=== PATIENT | male | born 1960 | race Caucasian/White ===

== ENCOUNTER 2017-09-12 14:14 | Emergency (ER) | payer SELFPAY ==
[2017-09-12] MEDS ORDERED: Ketorolac 60 MG/2 ML SDV IM ONE (14:21)
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
--- NOTE | 2017-09-13 09:10 | CR ---
EXAM DATE: 09/12/17 PATIENT'S AGE: 57 Patient: HAIM BAIG Facility: [place], [place] Site . Site : 1960 Study: XRay Knee Right [id number]/24/2018 3:50:56 PM Ordering Physician: Slime Grover Final Report: Indication: Knee pain Technique: Right knee 3 views Comparison: None Findings: Bones: Alignment is normal. No fractures or bone lesions. Minimal spurring is present in the anterior and superior surfaces of the patella. Joint spaces: Joint spaces are well maintained. No degenerative changes. No sign of joint effusion. Soft tissues: Unremarkable. Impression: No findings to explain pain. Dictated by Eliot Anna MD @ Sep 12 2017 4:23PM (Electronic Signature) Report Signed by Proxy. LUCY
--- NOTE | 2017-09-13 09:11 | CR ---
EXAM DATE: 09/12/17 PATIENT'S AGE: 57 Patient: HAIM BAIG Facility: [place], [place] Site . Site : 1960 Study: XRay Spine Lumbar [id number]/24/2018 3:51:14 PM Ordering Physician: Slime Grover Final Report: INDICATION: Back pain TECHNIQUE: Lumbar spine 3 view COMPARISON: None FINDINGS: Bones: Alignment is normal. No fractures or significant bone lesions. Joints: Disc spaces and facets are unremarkable. Soft tissues: Unremarkable. IMPRESSION: Unremarkable lumbar spine. Dictated by Eliot Anna MD @ Sep 12 2017 4:25PM (Electronic Signature) Report Signed by Proxy. LUCY
--- NOTE | 2017-09-13 09:12 | CR ---
EXAM DATE: 09/12/17 PATIENT'S AGE: 57 Patient: HAIM BAIG Facility: [place], [place] Site . Site : 1960 Study: XRay Extremity Right ankle [id number]/24/2018 3:51:34 PM Ordering Physician: Slime Grover Final Report: Indication: Left ankle pain Technique: Left ankle 3 views Comparison: None Findings: Bones: Alignment is normal. No fractures or bone lesions. Joint spaces: Joint spaces are well maintained. No degenerative changes. Soft tissues: Unremarkable. Impression: No findings to explain pain. Dictated by Eliot Anna MD @ Sep 12 2017 4:26PM (Electronic Signature) Report Signed by Proxy. LUCY
== END 2017-09-12 16:59 | disposition home or self-care (01) ==
LOC: MW.ED 14:14
DX: S99.911A Unspecified injury of right ankle, initial encounter (principal); S89.91XA Unspecified injury of right lower leg, initial encounter; Z91.048 Other nonmedicinal substance allergy status; V29.9XXA Motorcycle rider (driver) (passenger) injured in unspecified traffic accident, initial encounter
CPT/HCPCS: 72100; 73562; 73610; 80305; 81001; 96372; 99284; J1885; 99283

== ENCOUNTER 2017-11-17 09:26 | Day surgery (SDC) | payer OTHER ==
[~2017-11-17 09:26] MED LIST: Lactated Ringers 1,000 ML IV SCH; Midazolam 1 MG/ML 2 ML SDV ONE; Propofol 200 MG/20 ML SDV ONE; fentaNYL 100 MCG/2 ML SDV ONE
--- NOTE | 2017-11-17 10:13 | PCM.PREANE ---
Preanesthetic Assessment - Procedure Proposed Procedure: EGD and Colonoscopy - Anesthesia/Transfusion/Family Hx Anesthesia History: Prior Anesthesia Without Reaction Transfusion History: No Prior Transfusion(s) - Review of Systems General: No Symptoms Pulmonary: No Symptoms Cardiovascular: No Symptoms Gastrointestinal: Other (GERD) Neurological: Other (low back pain) Other: Reports: None - Physical Assessment NPO Status Date: 11/16/17 NPO Status Time: 22:00 O2 Sat by Pulse Oximetry: 96 Respiratory Rate: 15 Vital Signs: Last Vital Signs Temp 98.2 F 11/17/17 10:09 Pulse 58 L 11/17/17 10:09 Resp 15 11/17/17 10:09 BP 112/66 11/17/17 10:09 Pulse Ox 96 11/17/17 10:09 Height: 5 ft 10 in Weight: 172 lb ASA Class: 2 Mental Status: Alert & Oriented x3 Airway Class: Mallampati = 2 Dentition: Reports: Normal Dentition (lower), Dentures Thyro-Mental Finger Breadths: 3 Mouth Opening Finger Breadths: 3 ROM/Head Extension: Full Lungs: Clear to Auscultation, Normal Respiratory Effort Cardiovascular: Regular Rate, Regular Rhythm, No Murmurs - Allergies Allergies/Adverse Reactions: Allergies Allergy/AdvReac Type Severity Reaction Status Date / Time cat dander Allergy Other Verified 11/14/17 09:40 hay Allergy Other Uncoded 09/12/17 14:28 - Blood Blood Available: No Product(s) Available: None - Anesthesia Plan Pre-Op Medication Ordered: None - Acknowledgements Anesthesia Type Planned: MAC Pt an Appropriate Candidate for the Planned Anesthesia: Yes Alternatives and Risks of Anesthesia Discussed w Pt/Guardian: Yes Pt/Guardian Understands and Agrees with Anesthesia Plan: Yes PreAnesthesia Questionnaire - Past Health History Medical/Surgical History: Denies Medical/Surgical History HEENT History: Reports: Other (See Below) Other HEENT History: top denture Gastrointestinal History: Reports: GERD, Other (See Below) Other Gastrointestinal History: dysphagia Musculoskeletal History: Reports: Fracture Other Musculoskeletal History: master wrist fx's Dermatologic History: Reports: Psoriasis - Past Surgical History Head Surgeries/Procedures: Reports: None Musculoskeletal Surgical History: Reports: Other (See Below) Other Musculoskeletal Surgeries/Procedures:: repair of left wrist fracture - SUBSTANCE USE Smoking Status *Q: Current Every Day Smoker Tobacco Use Within Last Twelve Months: Cigarettes Recreational Drug Use History: No - HOME MEDS Home Medications: Home Meds Omeprazole 40 mg PO DAILY 11/14/17 [History] Sucralfate 1 tab PO TID 11/14/17 [History] - CURRENT (IN HOUSE) MEDS Current Meds: Current Medications Lactated Ringer's (Ringers, Lactated) 1,000 mls @ 125 mls/hr IV ASDIRECTED ERICK Last Admin: 11/17/17 10:09 Dose: 125 mls/hr Discontinued Medications Fentanyl (Sublimaze) Confirm Administered Dose 100 mcg .ROUTE .STK-MED ONE Stop: 11/17/17 08:15 Midazolam HCl (Versed 1 Mg/Ml) Confirm Administered Dose 2 mg .ROUTE .STK-MED ONE Stop: 11/17/17 08:15 Propofol (Diprivan 20 Ml) Confirm Administered Dose 200 mg .ROUTE .STK-MED ONE Stop: 11/17/17 08:15
[2017-11-17] MEDS ORDERED: Glycopyrrolate 0.2 MG/ML SDV ONE (10:50)
[2017-11-17] MEDS ORDERED: Propofol 200 MG/20 ML SDV ONE (11:04)
--- NOTE | 2017-11-17 11:44 | PCM.POSTAN ---
POST ANESTHESIA ASSESSMENT - MENTAL STATUS Mental Status: Alert, Oriented - RESPIRATORY Respiratory Status: Respiratory Rate WNL, Airway Patent, O2 Saturation Stable - CARDIOVASCULAR CV Status: Pulse Rate WNL, Blood Pressure Stable - GASTROINTESTINAL GI Status: No Symptoms - POST OP HYDRATION Hydration Status: Adequate & Stable
--- NOTE | 2017-11-17 11:54 | PCM48HPAN ---
Post Anesthesia Note - EVALUATION WITHIN 48HRS OF ANESTHETIC Vital Signs in Normal Range: Yes Patient Participated in Evaluation: Yes Respiratory Function Stable: Yes Airway Patent: Yes Cardiovascular Function Stable: Yes Hydration Status Stable: Yes Pain Control Satisfactory: Yes Nausea and Vomiting Control Satisfactory: Yes Mental Status Recovered: Yes Resp Rate: 18
--- NOTE | 2017-11-17 12:09 | PCM.OPNOTE ---
- General Post-Op/Procedure Note Date of Surgery/Procedure: 11/17/17 Operative Procedure(s): egd w bx. colonoscopy Findings: see dict [id number] Pre Op Diagnosis: dysphagia and abd pain Post-Op Diagnosis: Same Anesthesia Technique: Moderate Sedation (jose) Primary Surgeon: Faustino Fischer Pathology: sent Complications: None Condition: Good Free Text/Narrative:: Intake & Output 11/16/17 11/17/17 11/17/17 22:59 06:59 14:59 Intake Total 900 Balance 900
--- NOTE | 2017-11-17 18:52 | OR ---
SURGEON: Faustino Fischer MD DATE OF PROCEDURE: 11/17/2017 PREOPERATIVE DIAGNOSES: 1. Dysphagia. 2. Abdominal pain. POSTOPERATIVE DIAGNOSES: Esophagogastroduodenoscopy diagnosis: Nondiagnostic food. Colonoscopy diagnosis: Hemorrhoids. PROCEDURES PERFORMED: Attempted esophagogastroduodenoscopy with biopsy and colonoscopy. PROCEDURE IN DETAIL: EGD: The patient was taken to the endoscopy room, and with the [facility], Diprivan was administered. A well-lubricated EGD scope was gently inserted through the oropharynx, down the esophagus, passing through the gastroesophageal junction, into the stomach. The mucosa was examined upon the passage. Any etiology will be noted. Once in the stomach, we continued to advance to the distal antrum, passed through the pylorus into the second portion of the duodenum. Again, the mucosa was examined for any abnormality and etiology. The scope was then retrieved back to the stomach and then retroflexed to look at the fundus of the stomach. If a biopsy was indicated, we will biopsy the antrum, body, and gastroesophageal junction. The air will be sucked out while the scope is retrieved to reduce the patient's discomfort. The patient tolerated the procedure well. There were no intraoperative complications. Dr. Fischer was present through the whole procedure. Prior to surgery, a time-out had been called, the patient identified, procedure identified and antibiotic administered. Colonoscopy procedure: The patient was taken to the endoscopy room. A time out was called, patient identified, and procedure identified. Diprivan was then administrated. Patient went from awake to sleep, hearing doctor talking or door closing is normal. Perineum inspection and digital examination were then performed. A well- lubricated colonoscope was gently inserted through the rectum, advanced past the rectosigmoid junction, the descending colon, splenic flexure, transverse colon, hepatic flexure, ascending colon, arrived to the cecum. Cecum was identified as dictated in the finding. Then the scope was carefully withdrawn while attention was paid to the mucosal surface for any abnormality. Air will be sucked out during the scope withdrawal. At the rectum, retroflexed to examine any rectal diseases, fistula or hemorrhoids. Patient tolerated procedure well. There were no intraoperative complications, and Dr. Fischer was present throughout the whole procedure. FINDINGS: EGD findings: The patient was taken to procedure room and put in the left decub position, right side up, and then general sedation was given and a well lubricated endoscopy was gently inserted through the oropharynx down into the esophagus. It was observed that there is large amount of saliva and white particle and green stuff in the esophagus. Throughout the whole esophagus where there is yeast infection of food particle not known and the stomach able to go in, but is full of food, cannot see anything at all, and keep sucking. Does not able to suck off them and stomach biopsy of the GE junction at 40 and sucked out the air while scope pulling out. Again, this EGD is attempted and failed to observe anything because of large amount of food particle, possible yeast infection, possible food in the esophagus. Need to be repeated 3 to 6 months from now. Colonoscopy findings: The patient is easily sedated with [facility] [employer] and Diprivan. The patient is soundly snoring and bowel prep is average to good with very little liquid stool and colon is rather straight forward. Cecum indicated by ileocecal fold, one-to-one indentation, light emittance, and appendiceal orifice. Mucosa examined upon scope pulling out. The patient does not have diverticulosis, polyp, mass, growth, inflammation, stricture, ulceration, AV malformation, none of those. The patient has very serious internal hemorrhoids and a little bit of external hemorrhoids. The patient would benefit from repeat colonoscopy in 10 years from today or if clinically indicated otherwise. We would discuss the hemorrhoid situation in the followup. SEAN RIVERO /[id number] LUCY
== END 2017-11-17 12:05 | disposition home or self-care (01) ==
LOC: MW.SDS 09:26
PROVIDERS: ATTEND Surgery
DX: K20.9 Esophagitis, unspecified (principal); K64.8 Other hemorrhoids; K64.4 Residual hemorrhoidal skin tags; K21.9 Gastro-esophageal reflux disease without esophagitis; F17.210 Nicotine dependence, cigarettes, uncomplicated; Z79.899 Other long term (current) drug therapy; Z91.048 Other nonmedicinal substance allergy status
CPT/HCPCS: 43239; 45378; J2250; J2704; J3010; J3490; J7120; 88305; 88312